=== PATIENT | female | born 1945 | race Caucasian/White ===

== ENCOUNTER 2017-04-06 17:49 | Inpatient (IN) | payer MEDICARE, BC ==
[~2017-04-06] VITALS: Ht 162.6 cm; Wt 73.9 kg
[~2017-04-06 17:49] MED LIST: ARAVA10 MG PO; COVERA-HS240 MG PO; DILAUDID INJ2 MG/ML IV; DULCOLAX10 MG/SUPP RC; FOLIC ACID1 MG PO; HYDROCHLOROTHIA25 MG PO; K-DUR20 MEQ PO; LOVENOX30 MG/0.3 SQ; METHOTREXATE2.5 MG PO; MIRALAX17 GM PO; NEURONTIN 100100 MG PO; NORCO 10/325 TA1 TA1 PO; ONDANSETRON4 MG/2 M3 IV; PREDNISONE1 MG PO; ROBAXIN-750750 MG PO; SALINE FLUSH10 ML IJ; SENOKOT-S TABLE1 TAB PO; STERAPRED 5MG 125 MG PO; TYLENOL325 MG PO; ULTRAM50 MG PO; ZANAFLEX4 MG PO; ZOFRAN4 MG PO
[2017-04-06] MEDS ORDERED: ULTRACET TABLET1 TAB PO (18:26)
[2017-04-06] MEDS ORDERED: XALATAN 0.0052.5 ML EACH EYE (18:27)
[2017-04-06] MEDS ORDERED: CALAN120 MG PO (18:30)
[2017-04-06] MEDS ORDERED: PREDNISONE5 MG PO (18:33)
--- NOTE | 2017-04-06 18:34 | NUR ---
1814 PATIENT ARRIVED TO UNIT AND ADMITTED TO ROOM 2137. PATIENT ARRIVED BY WHEELCHAIR ACCOMPAINED BY MALE VISITOR AND ADMISSIONS STAFF. ARM BAND PLACED ON PATIENT AFTER ASSISTING PATIENT TO BED. MULITPLE PILLOWS PROVIDED. CALL LIGHT WITHIN REACH. NO DISTRESS. RIGHT ELBOW WRAPPED WITH PRECIOUS BANDAGE, ELEVATED ON PILLOWS.
--- NOTE | 2017-04-06 18:45 | NUR ---
22 GAUGE IV PLACED TO LEFT FOREARM X 1 STICK. GOOD BLOOD RETURN, EASY FLUSH. TAPED, DATED AND SECURED. TOLERATED IV INSERTION WELL.
[2017-04-06 19:01] LABS: BASOPHILS 0.1 % (0-2); EOSINOPHILS 0.3 % (0-7); HEMATOCRIT 40.4 % (36.0-48.0); HEMOGLOBIN 13.1 g/dL (12-16); IMMATURE GRANULOCYTES 0.3 % (0-5); MCH 31.7 pg (26.0-34.0); MCHC 32.4 g/dL (31.0-37.0); MCV 97.8 fL (80.0-100.0); MEAN PLATELET VOLUME 9.7 fL (7.4-10.4); MONOCYTES 5.7 % (2-11); NEUTROPHILS 87.6 % (40-80); RBC 4.13 10x6/uL (4.00-5.40); RDW 19.1 % (11.5-14.5); WBC 17.3 10x3/uL (4.8-10.8)
[2017-04-06 19:07] LABS: PLATELET COUNT 234 10x3/uL (130-400)
[2017-04-06 19:22] LABS: ALBUMIN 2.9 g/dL (3.4-5.0); ANION GAP 9.7 mmol/L (8-16); BILIRUBIN - TOTAL 1.22 mg/dL (0.2-1.3); CALCIUM 8.8 mg/dL (8.5-10.1); CARBON DIOXIDE 30.5 mmol/L (21.0-32.0); CREATININE - SERUM 1.1 mg/dL (0.6-1.3); POTASSIUM - SERUM 3.2 mmol/L (3.5-5.1)
--- NOTE | 2017-04-06 19:37 | NUR ---
IV FLUIDS INFUSING ORDERED AT THIS TIME. REPORT GIVEN TO ONCOMING NURSE.
[2017-04-06 20:00] VITALS: BP 125/66
--- NOTE | 2017-04-06 20:30 | NUR ---
REST IN BED, EYE OPEN, DENIES NEEDS.
[2017-04-06 21:36] LABS: ERYTHROCYTE SEDIMENTATION RATE 80 mm/hr (0-30)
[2017-04-07 04:00] VITALS: BP 114/62
[2017-04-07 06:08] VITALS: BP 125/66; Ht 162.6 cm; Wt 73.9 kg
--- NOTE | 2017-04-07 06:23 | NUR ---
PT LYING IN BED, EYES CLOSED, RESPIRATIONS EVEN AND UNLABORED. CONTINUE TO MONITOR CLOSELY. BED LOW, CALL LIGHT IN REACH, SIDE RAILS X 2, HOB 30 DEGREES.
[2017-04-07 07:09] LABS: BASOPHILS 0.2 % (0-2); HEMOGLOBIN 11.1 g/dL (12-16); IMMATURE GRANULOCYTES 0.4 % (0-5); LYMPHOCYTES 6.7 % (15-50); MCH 31.1 pg (26.0-34.0); MCHC 31.7 g/dL (31.0-37.0); MONOCYTES 5.9 % (2-11); NEUTROPHILS 85.8 % (40-80); RBC 3.57 10x6/uL (4.00-5.40); RDW 19.2 % (11.5-14.5); WBC 13.3 10x3/uL (4.8-10.8)
[2017-04-07 07:18] LABS: PLATELET COUNT 184 10x3/uL (130-400)
[2017-04-07 07:32] LABS: ANION GAP 9.5 mmol/L (8-16); CALCIUM 7.4 mg/dL (8.5-10.1); CARBON DIOXIDE 28.2 mmol/L (21.0-32.0); CREATININE - SERUM 0.9 mg/dL (0.6-1.3)
[2017-04-07 08:00] VITALS: BP 144/76
[2017-04-07 08:14] LABS: POTASSIUM - SERUM 2.7 mmol/L (3.5-5.1)
--- NOTE | 2017-04-07 08:18 | NUR ---
REECE FROM LAB CALLED TO REPORT CRITCAL POTASSIUM LEVEL (2.7) ON PT. PAGED CHIRAG HOLLINS NP TO INFORM HER OF THIS. WILL AWAIT CALLBACK.
--- NOTE | 2017-04-07 08:21 | NUR ---
AM ROUNDING- RECEIVED REPORT FROM LOCAL DELIVERY DRIVER NURSE GUSTAVO. PT IS CURRENTLY LAYING IN BED ON LEFT SIDE WITH EYES OPEN RESTING. PT STATES SHE IS IN NO PAIN CURRENTLY BUT DOES HAVE HEADACHE. ON ROOM AIR. NO MONITOR. IV SEEN TO LEFT FOREARM WITH NS RUNNING AT 75CC. NO NEED AT CURRENT TIME. CALL LIGHT IS IN REACH. WILL CONTINUE TO MONITOR AND CONTINUE WITH PLAN OF CARE.
--- NOTE | 2017-04-07 08:23 | NUR ---
RECEIVED CALLBACK FROM CHIRAG HOLLINS NP WITH NEW ORDERS RECEIVED (ELECTROLYTE PROTOCOL). WILL DO ORDERED AND CONTINUE TO MONITOR.
[2017-04-07 12:00] VITALS: BP 151/79
--- NOTE | 2017-04-07 15:07 | NUR ---
PT IS CURRENTLY SITTING UP IN BED WITH EYES OPEN RESTING WATCHING TV. PT STATES SHE IS FINE AT THIS TIME. NO NEED AT CURRENT TIME. CALL LIGHT IS IN REACH. WILL CONTINUE TO MONITOR.
[2017-04-07 16:00] VITALS: BP 133/66
--- NOTE | 2017-04-07 16:58 | NUR ---
PT IS WEARING SCD'S.
--- NOTE | 2017-04-07 18:45 | NUR ---
PT IS CURRENTLY LAYING IN BED ON RIGHT SIDE WITH EYES OPEN RESTING. PT DENIES ANY NEED AT THIS TIME. CALL LIGHT IS IN REACH. WILL CONTINUE TO MONITOR.
[2017-04-07 19:00] VITALS: BP 108/72
--- NOTE | 2017-04-07 20:26 | NUR ---
PT AWAKE, ALERT, ORIENTED, STATING MINIMAL PAIN IN RT ELBOW. K+ NOW WNL. PT DENIES ANY NEEDS. I HAVE REPLACED PTS SCD'S, PLACED A PILLOW BETWEEN HER LEGS PER HER REQUEST, AND SHE IS NOW RESTING COMFORTABLY. CONTINUE TO MONITOR CLOSELY. BED LOW, CALL LIGHT IN REACH, SIDE RAILS X 2, HOB 30 DEGREES.
[2017-04-08] VITALS: BP 97/58
--- NOTE | 2017-04-08 03:28 | NUR ---
PT RESTING COMFORTABLY. ICE PACK GIVEN WITH 21:00 MEDS FOR COMFORT TO RT ELBOW/ARM. PT REQUESTED TO HAVE SCD'S REMOVED, STATING SHE FEELS CONFINED AND CANNOT TOLERATE THEM AT THIS TIME. DENIES ANY OTHER NEEDS. CONTINUE TO MONITOR CLOSELY. BED LOW, CALL LIGHT IN REACH, SIDE RAILS X 2, HOB 30+ DEGREES.
[2017-04-08 04:00] VITALS: BP 115/58
--- NOTE | 2017-04-08 05:17 | NUR ---
PT RESTING COMFORTABLY, DENIES ANY NEEDS. CONTINUE TO MONITOR CLOSELY.
[2017-04-08 08:00] VITALS: BP 112/47
--- NOTE | 2017-04-08 08:07 | NUR ---
0715- AM ROUNDING- RECEIVED REPORT FROM TELEGRAPH REPEATER TECHNICIAN NURSE LAVONNE. PT IS CURRENTLY SITTING UP IN BED WITH EYES OPEN RESTING. PT STATES SHE IS HAVING SOME PAIN FROM RIGHT ELBOW AREA. I INFORMED PT THAT I WILL LOOK AND SEE WHAT PT HAS FOR PAIN AND GIVE ORDERED. ON ROOM AIR. NO MONITOR. IVS EEN TO LEFT FOREARM WITH NS RUNNING AT KVO (30CC). NO NEED AT THIS CURRENT TIME. WILL CONTINUE TO MONITOR AND CONTINUE WITH PLAN OF CARE.
[2017-04-08 12:00] VITALS: BP 103/37
--- NOTE | 2017-04-08 13:22 | NUR ---
Patient Name: ANNY FLETCHER Admission Status: Elective Accout number: [id number] Admission Date: 04-06-2017 : 1945 Admission Diagnosis:PAIN IN RIGHT ELBOW Attending: BENITA Current LOS: 2 Anticipated DC Date: Planned Disposition: Home Primary Insurance: MEDICARE A & B LATE ENTRY FROM 04-07-17: Discharge Planning Comments: * Is the patient Alert and Oriented? Yes 0 * How many steps to enter\exit or inside your home? 5-6 0 * PCP DR. MEZA 0 * Pharmacy [facility] 0 * Preadmission Environment Home with Family 0 * ADLs Independent 0 * Equipment Cane Walker 0 * Other Equipment NO MEDICAL EQUIPMENT PROVIDER PREFERENCE 0 * List name and contact numbers for known caregivers / representatives who currently or will assist patient after discharge: JIE FLETCHER, SON, JOCELIN CUMMINGS, DTR, 0 * Community resources currently utilized Private Duty Care 0 * Please name any agencies selected above. TELEHEALTH NURSE EDUCATOR, PRIVATE PAY 1X PER WEEK 0 * Additional services required to return to the preadmission environment? No 0 * Can the patient safely return to the preadmission environment? Yes 0 * Has this patient been hospitalized within the prior 30 days at any hospital? No 0 CM MET WITH PT IN ROOM TO DISCUSS DISCHARGE PLANNING AND NEEDS. PT REPORTS LIVING AT HOME INDEPENDENTLY WITH ADULT SON. PT HAS CANE AND WALKER WITH NO MEDICAL EQUIPMENT PROVIDER PREFERENCE. PT HAS NO OUTSIDE SERVICES ASSISTING IN THE HOME. CM DISCUSSED AVAILABILITY OF HOME HEALTH, REHAB SERVICES AND MEDICAL EQUIPMENT. PT DENIES DISCHARGE NEEDS, REPORTS HER SON WILL PICK HER UP FOR DISCHARGE HOME. On Call: Jayro Sweet
[2017-04-08 13:58] LABS: ANION GAP 11.1 mmol/L (8-16); CALCIUM 7.9 mg/dL (8.5-10.1); CARBON DIOXIDE 23.8 mmol/L (21.0-32.0); CREATININE - SERUM 0.9 mg/dL (0.6-1.3); POTASSIUM - SERUM 3.9 mmol/L (3.5-5.1)
[2017-04-08 14:20] LABS: BASOPHILS 0.1 % (0-2); EOSINOPHILS 1.2 % (0-7); HEMATOCRIT 32.7 % (36.0-48.0); HEMOGLOBIN 10.3 g/dL (12-16); IMMATURE GRANULOCYTES 0.4 % (0-5); LYMPHOCYTES 6.2 % (15-50); MCH 31.6 pg (26.0-34.0); MCHC 31.5 g/dL (31.0-37.0); MEAN PLATELET VOLUME 9.6 fL (7.4-10.4); MONOCYTES 8.3 % (2-11); NEUTROPHILS 83.8 % (40-80); PLATELET COUNT 176 10x3/uL (130-400); RBC 3.26 10x6/uL (4.00-5.40); RDW 19.2 % (11.5-14.5); WBC 13.8 10x3/uL (4.8-10.8)
[2017-04-08 14:30] LABS: MCV 100.3 fL (80.0-100.0)
[2017-04-08 16:00] VITALS: BP 137/57
--- NOTE | 2017-04-08 18:24 | NUR ---
PT IS CURRENTLY SITTING UP IN BED EATING DINNER TRAY. PT DENIES ANY NEED AT CURRENT TIME. WILL CONTINUE TO MONITOR.
--- NOTE | 2017-04-08 18:45 | NUR ---
PT STATES HER IV CATHETER (TO LEFT WRIST) HURTS. IV SITE IS SLIGHTLY RED. ATTEMPTED TO RESITE PT X2 WITH IV CATHETER THAT WAS NOT SUCCESSFUL. ATTEMPTED TO REPOSITION IV TO LEFT WRIST AND FLUSH, PT STATES IT HURTS. IV TO LEFT WRIST REMOVED WITH CATH TIP INTACT. WILL PASS THIS ALONG IN REPORT.
[2017-04-08 19:00] VITALS: BP 152/77
[2017-04-09] VITALS: BP 109/61
--- NOTE | 2017-04-09 00:51 | NUR ---
NURSE ROUNDS 04/08/17 21:00 - PT LYING IN BED, EYES CLOSED, RESPIRATIONS EVEN AND UNLABORED. CONTINUE TO MONITOR CLOSELY.
--- NOTE | 2017-04-09 03:22 | NUR ---
PTS IV RESITED TO RT FOREARM BY REYNA PRICE, 22G X 1 STICK.
[2017-04-09 04:00] VITALS: BP 120/81
[2017-04-09 05:49] LABS: BASOPHILS 0.2 % (0-2); EOSINOPHILS 1.7 % (0-7); HEMATOCRIT 32.9 % (36.0-48.0); HEMOGLOBIN 10.5 g/dL (12-16); IMMATURE GRANULOCYTES 0.4 % (0-5); LYMPHOCYTES 9.3 % (15-50); MCH 31.3 pg (26.0-34.0); MCHC 31.9 g/dL (31.0-37.0); MCV 98.2 fL (80.0-100.0); MEAN PLATELET VOLUME 9.7 fL (7.4-10.4); NEUTROPHILS 78.4 % (40-80); PLATELET COUNT 193 10x3/uL (130-400); RBC 3.35 10x6/uL (4.00-5.40); WBC 12.1 10x3/uL (4.8-10.8)
[2017-04-09 06:10] LABS: ANION GAP 11.1 mmol/L (8-16); CALCIUM 8.3 mg/dL (8.5-10.1); CARBON DIOXIDE 24.2 mmol/L (21.0-32.0); CREATININE - SERUM 0.9 mg/dL (0.6-1.3)
[2017-04-09 06:34] LABS: POTASSIUM - SERUM 3.3 mmol/L (3.5-5.1)
--- NOTE | 2017-04-09 07:00 | NUR ---
RECIEVED REPORT FROM OFF COMING NURSE. PT LYING IN BED. RIGHT ARM RED AND SWOLLEN. THERE IS AN OLD MARKER LINE CIRCLED AROUND REDNESS. THE ERYTHEMA HAS NOT PASSED THE LINE. IT HAS DECREASED FROM THE LINE IN SOME SPOTS. LEFT FA HAS A IV WITH NS AT 30ML/H. DENIES PAIN AT THIS TIME. BREATHING NORMAL AND UNLABORD. STEFANO LIGHT IN REACH. WILL CONT POC
[2017-04-09 08:00] VITALS: BP 104/60
[2017-04-09 16:00] VITALS: BP 126/57
--- NOTE | 2017-04-09 18:00 | NUR ---
FAMILY AT BED SIDE.
--- NOTE | 2017-04-09 18:45 | NUR ---
REPORT GIVEN TO ON COMING NURSE. BREATHING NORMAL AND UNLABORED. DENIES PAIN. 0 S/SX OF DISTRESS/DISCOMFORT NOTED. CALL LIGHT IN REACH. WILL CONT POC.
--- NOTE | 2017-04-09 19:26 | NUR ---
Received patient awake and alert sitting up in bed on her computer. Oriented x 4. PIV in lower left forearm infusing NS @30ml/hr with no signs of infection or infiltration at PIV insertion site. Bruising noted to both arms. Right arm red and imflamed especially at elbow area. Patient reports that the swelling is receding, right hand is no longer swollen and swelling is receding down from upper arm. Patient states the right elbow is tender and sore, and is requesting an ice pack to same.
[2017-04-09 20:00] VITALS: BP 122/56
--- NOTE | 2017-04-09 20:34 | NUR ---
Ice pack given to place on right elbow, patient reports this is helping relieve symptoms. Also given Ultracet tab PRN at this time for right arm pain. Will monitor for effectiveness.
--- NOTE | 2017-04-09 21:35 | NUR ---
Patient's son at nursing station requesting ice pack be changed with fresh ice, Tech did same and was given to patient to place on right elbow.
--- NOTE | 2017-04-10 02:10 | NUR ---
Patient in bed sleeping, eyes closed, respirations easy and regular. No signs of distress, IV infusing.
[2017-04-10 04:00] VITALS: BP 129/66
--- NOTE | 2017-04-10 05:10 | NUR ---
Continues to sleep, no signs of distress.
[2017-04-10 06:16] LABS: BASOPHILS 0.4 % (0-2); EOSINOPHILS 3.7 % (0-7); HEMOGLOBIN 10.6 g/dL (12-16); IMMATURE GRANULOCYTES 0.6 % (0-5); LYMPHOCYTES 15.8 % (15-50); MCH 31.1 pg (26.0-34.0); MCHC 32.1 g/dL (31.0-37.0); MCV 96.8 fL (80.0-100.0); MEAN PLATELET VOLUME 9.6 fL (7.4-10.4); MONOCYTES 19.6 % (2-11); NEUTROPHILS 59.9 % (40-80); PLATELET COUNT 206 10x3/uL (130-400); RBC 3.41 10x6/uL (4.00-5.40); WBC 6.7 10x3/uL (4.8-10.8)
[2017-04-10 06:30] LABS: CALC OSMOLALITY 273 mosm/kg (275-300); CALCIUM 8.4 mg/dL (8.5-10.1); CARBON DIOXIDE 26.9 mmol/L (21.0-32.0); CHLORIDE - SERUM 102 mmol/L (98-107); CREATININE - SERUM 0.7 mg/dL (0.6-1.3); GLUCOSE 111 mg/dL (74-106); POTASSIUM - SERUM 3.3 mmol/L (3.5-5.1); SODIUM 137 mmol/L (136-145); UREA NITROGEN 10 mg/dL (7-18); eGFR NON AFRICAN AMERICAN 88 mL/min (90-120)
--- NOTE | 2017-04-10 07:30 | NUR ---
AM ROUNDS COMPLETED. PT A&O RESTING QUIETLY IN BED. SHIFT ASSESSMENT COMPLETED. RE-ELEVATED PTS R.ARM ON A PILLOW TO HELP REDUCE SWELLING. PT VOICED THANKS AND IS WAITING ON BREAKFAST. NO FURTHER NEEDS AT THIS TIME. CL IN REACH, BED IN LOWEST, SIDE RAILS X2. WILL CPOC.
[2017-04-10 08:00] VITALS: BP 126/66
--- NOTE | 2017-04-10 09:15 | NUR ---
MORNING MEDICATIONS SWALLOWED AND PT DENIED ANY DIFFICULTIES WITH SWALLOWING. PTS POTASSIUM IS 3.3 AND SHES ON ELECTROLYTE PROTOCOL. 40MEQ OF LIQUID POTASSIUM GIVEN PER PROTOCOL AND DILUTED IN ORANGE JUICE. PT HAS PIV TO L.FA WITH NS @30ML/HR. R.ARM IS SWOLLEN AND RED AND WARM TO THE TOUCH. ELEVATED WITH PILLOWS AND PROVIDED PT WITH PRN PAIN MEDICATION ALONG WITH ICE PACK TO HELP WITH PAIN. PT VOICED THANKS AND DENIES ANY FURTHER NEEDS AT THIS TIME. CL IN REACH, BED IN LOWEST, SIDE RAILS X2. WILL CPOC.
[2017-04-10 12:00] VITALS: BP 115/71
[2017-04-10 16:00] VITALS: BP 142/77
--- NOTE | 2017-04-10 16:01 | NUR ---
PTS POTASSIUM LEVEL NOW 3.8 NO FURTHER TX NEEDED AT THIS TIME PER ELECTROLYTE PROTOCOL. WILL CPOC.
[2017-04-10 19:00] VITALS: BP 112/66
--- NOTE | 2017-04-10 19:30 | NUR ---
PT LAYING ON RIGHT SIDE WATCHING A MOVIE. C/O PAIN IN RIGHT ARM. DENIES ANY NEEDS. NO S/S OF DISTRESS. BED LOW AND CALL LIGHT WITHIN REACH. WILL CPOC
--- NOTE | 2017-04-10 19:48 | NUR ---
PT PIV INFILTRATED D/C WITH CATHETER TIP FULLY INTACT. PT IS REFUSING TO HAVE A NEW ONE INSERTED AND STATES SHE IS HOPING TO BE DISCHARGED TOMORROW AND CAN HAVE ORAL ANBX. WILL PASS ON.
--- NOTE | 2017-04-10 21:54 | NUR ---
PT WATCHING TV. NIGHT TIME MEDS GIVEN, PT DENIES ANY NEEDS. NO S/S OF DISTRESS. PT IS HURTING GAVE HER ORDERED TRAMADOL. WILL GIVE HER NORCO AT 0000 WHEN IT IS TIME. PT DENIES ANY OTHER NEEDS. WILL CPOC
--- NOTE | 2017-04-11 03:11 | NUR ---
PT RESTING IN BED. C/O PAIN IN HER RIGHT ARM AND SHOULDER. HYDDROCODONE GIVEN. FOR PAIN 01/30. PT HAS ICE PACKS. PT DENIES ANY OTHER NEEDS. NO S/S OF DISTRESS. WILL CPOC
[2017-04-11 04:00] VITALS: BP 104/54
[2017-04-11 07:15] LABS: BASOPHILS 0.5 % (0-2); EOSINOPHILS 3.6 % (0-7); HEMATOCRIT 34.1 % (36.0-48.0); HEMOGLOBIN 10.9 g/dL (12-16); IMMATURE GRANULOCYTES 1.3 % (0-5); LYMPHOCYTES 17.6 % (15-50); MCV 96.9 fL (80.0-100.0); MEAN PLATELET VOLUME 9.3 fL (7.4-10.4); MONOCYTES 24.9 % (2-11); NEUTROPHILS 52.1 % (40-80); PLATELET COUNT 223 10x3/uL (130-400); RBC 3.52 10x6/uL (4.00-5.40); RDW 19.1 % (11.5-14.5); WBC 5.5 10x3/uL (4.8-10.8)
[2017-04-11 07:26] LABS: CALC OSMOLALITY 266 mosm/kg (275-300); CALCIUM 8.6 mg/dL (8.5-10.1); CARBON DIOXIDE 28.4 mmol/L (21.0-32.0); CHLORIDE - SERUM 101 mmol/L (98-107); CREATININE - SERUM 0.8 mg/dL (0.6-1.3); GLUCOSE 92 mg/dL (74-106); POTASSIUM - SERUM 3.5 mmol/L (3.5-5.1); SODIUM 134 mmol/L (136-145); UREA NITROGEN 10 mg/dL (7-18); eGFR NON AFRICAN AMERICAN 75 mL/min (90-120)
[2017-04-11 08:00] VITALS: BP 113/69
[2017-04-11 16:00] VITALS: BP 120/63
--- NOTE | 2017-04-11 16:05 | NUR ---
ALERT AND ORIENTED X4. RESTING IN BED. ANXIOUS TO GO HOME. NO IV ACCESS. REFUSE IV TO BE SITED. DENIES SOB. PAIN MANAGEMENT CONTINUED ORDERED. DENIES ANY NEEDS. BED LOCKED AND LOW. CALL LIGHT IN REACH. TWO SIDERAILS UP.
--- NOTE | 2017-04-11 19:52 | NUR ---
PT RESTING IN BED. RIGHT ARM HURTS HER 12/30. PT CAN NOT USE IT TO LIFT DRINK. PT DENIES ANY NEEDS. NO S/S OF DISTRESS. ULTRAM WAS GIVEN AT ABOUT 1730 WILL GIVE HER OTHER ULTRAM AT A LATER TIME. BED LOW AND CALL LIGHT WITHIN REACH. WILL CPOC
[2017-04-11 20:00] VITALS: BP 104/50
--- NOTE | 2017-04-12 00:04 | NUR ---
PT UP TO BSC WITH X1 ASSIST. PT DENIES ANY NEEDS. ZOFRAN GIVEN FOR NAUSEA APPROX 30 MINS AGO HAS HELPED. ICE PACKS PROVIDED FOR RIGHT ARM. NO S/S OF DISTRESS. BED LOW AND CALL LIGHT WITHIN REACH. WILL CPOC
--- NOTE | 2017-04-12 01:00 | NUR ---
ASSIST PT TO BEDSIDE COMMODE. PT DID NOT NEED ASSIST YESTURDAY. WHEN ASKING PT SHE STATED THAT SHE HAS URINATION URGENCY THAT SHE DIDNT HAVE YESTURDAY. SHE ALSO STATES THAT SHE FEELS WEAKER THAN YESTURDAY. SHE STATED "NOT REHAB WEAK BUT I AM WEAKER AND FEEL WORSE THAN I DID YESTURDAY. I DONT FEEL LIKE I AM GETTING BETTER" TOLD PT I WOULD PUT A NOTE IN AND PASS THIS NEW CONCERN IN REPORT. AND ADVISED HER TO ALSO SPEAK WITH HER DOCTOR ABOUT IT WHEN HE MAKES HIS ROUNDS. HELPED PT REPOSITION. ICE PACKS ON RIGHT ARM. PT LAYING ON LEFT SIDE. PILLOW BETWEEN LEGS AND A PILLOW BEHIND HER BACK. PT DENIES ANY NEEDS. NO S/S OF DISTRESS. WILL CPOC
[2017-04-12 04:00] VITALS: BP 118/64
[2017-04-12 05:21] LABS: BASOPHILS 0.4 % (0-2); EOSINOPHILS 2.3 % (0-7); HEMATOCRIT 34.7 % (36.0-48.0); HEMOGLOBIN 11.1 g/dL (12-16); IMMATURE GRANULOCYTES 1.5 % (0-5); LYMPHOCYTES 15.3 % (15-50); MCH 31.3 pg (26.0-34.0); MCV 97.7 fL (80.0-100.0); MEAN PLATELET VOLUME 9.1 fL (7.4-10.4); MONOCYTES 23.3 % (2-11); NEUTROPHILS 57.2 % (40-80); PLATELET COUNT 242 10x3/uL (130-400); RBC 3.55 10x6/uL (4.00-5.40); WBC 6.8 10x3/uL (4.8-10.8)
[2017-04-12 05:36] LABS: ANION GAP 11.4 mmol/L (8-16); CALCIUM 8.5 mg/dL (8.5-10.1); CARBON DIOXIDE 29.2 mmol/L (21.0-32.0); CREATININE - SERUM 0.9 mg/dL (0.6-1.3); POTASSIUM - SERUM 3.6 mmol/L (3.5-5.1)
--- NOTE | 2017-04-12 06:50 | NUR ---
PT RESTING IN BED. UP TO BSC FOR VOID. STAND BY ASSIST. PT DENIES ANY NEEDS. TRAMADOL GIVEN FOR PAIN. NO S/S OF DISTRESS. WILL CPOC
[2017-04-12 08:00] VITALS: BP 102/58
[2017-04-12] MEDS ORDERED: VIBRAMYCIN 100100 MG PO (14:15)
[2017-04-12] MEDS ORDERED: FLORAJEN3 CAPS460 MG PO (14:15)
--- NOTE | 2017-04-12 15:42 | NUR ---
Patient Name: ANNY FLETCHER Encounter No: [id number] : 1945 Primary Insurance: MEDICARE A & B Anticipated DC Date: 04-12-2017 Planned Disposition: Home DCP follow-up note: CM MET WITH PT IN ROOM TO DISCUSS DISCHARGE NEEDS AND PLANNING. CM DISCUSSED AVAILABILITY OF HOME HEALTH, REHAB SERVICES AND MEDICAL EQUIPMENT. PT DENIES DISCHARGE NEEDS. PT'S SON TO TRANSPORT HOME AT DISCHARGE. IMPORTANT MESSAGE FROM MEDICARE PROVIDED AND EXPLAINED. Jayro Sweet, CASE MANAGEMENT
--- NOTE | 2017-04-12 16:54 | NUR ---
ALERT AND ORIENTED X4. RESTING IN BED. NO IV TO DC. DISCHARGE INSTRUCTIONS GIVEN VERBALLY AND WRITTEN. WRITTEN PRESCRIPTION PROVIDED. DISCHARGE PAPERS SIGNED ON CHART. WAITING FOR RIDE. CONTINUE PLAN OF CARE AND SAFETY PRECAUTIONS.
--- NOTE | 2017-04-12 18:54 | NUR ---
FAMILY ARRIVE FOR DISCHARGE. ESCORT TO RIDE VIA WHEELCHAIR. REMAINS FREE FROM INJURY.
== END 2017-04-12 18:55 | disposition home or self-care (01) | DRG 549 ==
LOC: D.M2 17:49
PROVIDERS: Orthopaedic Surgery; ADMIT Emergency Medicine
DX: M00.9 Pyogenic arthritis, unspecified (principal); L03.113 Cellulitis of right upper limb; M71.121 Other infective bursitis, right elbow; D64.9 Anemia, unspecified; I10 Essential (primary) hypertension; M06.9 Rheumatoid arthritis, unspecified; E78.5 Hyperlipidemia, unspecified; M54.5 Low back pain

== ENCOUNTER → 2017-04-22 14:17 | Outpatient (CLI) | payer MEDICARE, BC ==
[2017-04-07 06:08] VITALS: BMI 29.0
[~2017-04-22 14:17] MED LIST changes: +CALAN120 MG PO; +FLORAJEN3 CAPS460 MG PO; +PREDNISONE5 MG PO; +ULTRACET TABLET1 TAB PO; +VIBRAMYCIN 100100 MG PO; +XALATAN 0.0052.5 ML EACH EYE
== END | disposition home or self-care (01) ==
LOC: D.LABREF 14:17
DX: M71.121 Other infective bursitis, right elbow (principal)

== ENCOUNTER → 2018-07-12 20:08 | Outpatient (CLI) | payer MEDICARE, BC ==
[2017-04-07 06:08] VITALS: BMI 29.0
== END | disposition home or self-care (01) ==
LOC: D.MAMMO 13:30
DX: Z12.31 Encounter for screening mammogram for malignant neoplasm of breast (principal)

== ENCOUNTER 2019-10-18 11:37 | Day surgery (SDC) | payer MEDICARE, BC ==
[~2019-10-18] VITALS: Ht 162.6 cm; Wt 69.9 kg
[~2019-10-18 11:37] MED LIST changes: +OMEPRAZOLE20 M1 PO
[2019-10-18 12:21] LABS: HEMATOCRIT 39.7 % (36.0-48.0); HEMOGLOBIN 12.2 g/dL (12-16); MCH 32.1 pg (26.0-34.0); MCHC 30.7 g/dL (31.0-37.0); MCV 104.5 fL (80.0-100.0); MEAN PLATELET VOLUME 8.8 fL (7.4-10.4); RBC 3.8 10x6/uL (4.00-5.40); RDW 19.6 % (11.5-14.5); WBC 5.9 10x3/uL (4.8-10.8)
[2019-10-18 12:27] LABS: ANION GAP 10.7 mmol/L (8-16); CALCIUM 8.9 mg/dL (8.5-10.1); CARBON DIOXIDE 30.6 mmol/L (21.0-32.0); CREATININE - SERUM 0.9 mg/dL (0.6-1.3); POTASSIUM - SERUM 3.3 mmol/L (3.5-5.1)
[2019-10-18 13:08] VITALS: Ht 162.6 cm; Wt 69.9 kg
[2019-10-18] MEDS ORDERED: DURICEF500 MG PO (16:26)
[2019-10-18] MEDS ORDERED: HYDROCODON-ACE1 EA10 PO (16:26)
--- NOTE | 2019-10-18 17:49 | NUR ---
1515 INSTRUCTIONS GIVEN TO PT AND FAMILY
--- NOTE | 2019-10-18 18:06 | NUR ---
1805 IV REMOVED AND PRESSURE HELD. INSTRUCTIONS GIVEN
--- NOTE | 2019-10-18 19:04 | NUR ---
1845 PT ASSITED UP TO SIDE OF BED. ABLE TO WALK A SHORT DISTANCE WHILE HOLDING ON TO NURSE. BECAME WEAK AND ASSITED ON TOILET. SMALL AMT OF DRAINAGE TO PRECIOUS DRESING BUT NOT ALL THE WAY TO OUTSIDE OF DRESSING INDEX FINGER AND MIDDLE FINGER SWOLLEN. SLING MAINTAINED AND PT GIVEN A PILLOW ON THE WAY HOME. ENCOURAGED PT TO KEEP ABOVE HEART. DENIES PAIN. SWELLING IN BILATERAL FEET. 4+ EDEMA. PT WALKS WITH RIGHT FOOT AT A 30 DEGREE ANGLE. PT HAS A WALKER BUT ENCOURAGED PT TO SIT IN THE SEATED PART TO GET AROUND. 1900 ASSISTED BACK IN W/C AND COVERED WITH WARM BLANKETS. ASSISTED IN CAR.
--- NOTE | 2019-10-19 07:59 | OP ---
PATIENT NAME: ANNY FLETCHER MEDICAL RECORD: [id number] :[birth year] LOCATION:[facility] ADMISSION DATE: SURGEON: AUSTIN BECKHAM DO DATE OF OPERATION: 10/18/2019 PROCEDURE PERFORMED: Left ring finger proximal phalanx open reduction internal fixation. PREOPERATIVE DIAGNOSIS: Displaced proximal phalanx fracture, left ring finger. POSTOPERATIVE DIAGNOSIS: Displaced proximal phalanx fracture, left ring finger. INDICATIONS: Ms. Fletcher is a 73-year-old female who is right hand dominant who fell a couple of days ago and sustained a fracture to her proximal phalanx of her left hand, left ring finger. X-rays were taken, she was sent to my clinic to have it fixed. It was severely displaced and malrotated. I informed her of the risks including infection, bleeding, malunion, nonunion, adhesions of the extensor tendon and continued pain, malrotation and crossover of the fingers. She was okay with that as well as damage to the digital nerves and bleeding and signed the consent. SURGEON: Austin Beckham DO DESCRIPTION OF PROCEDURE: The patient was taken to the operative suite after given a block by anesthesia in preoperative area and taken to the OR, laid in the supine position, given general anesthetic and LMA was placed, given 2 grams of Ancef preoperatively. The left upper extremity was then prepped and draped in sterile fashion after LMA had been placed. She was sedated and timeout was performed, everyone was in agreement with the correct side, site, patient and procedure. Once she was prepped and draped and a timeout performed, I began the incision over the proximal phalanx of the left ring finger. Dissection was made down to the extensor tendon. I divided this in half and exposed the fracture site. The fracture was then reduced. A small plate was put on for [employer] and affixed the plate proximally first with 2 screws and then distally with 2 screws, had a very nice hold and reduction and confirmed on AP and lateral and then closed the extensor tendon with 2 simple interrupted sutures of 4-0 Ethibond closing in nicely and then tourniquet was let down and the skin was closed with a 4-0 nylon in a simple fashion. She was dressed with Adaptic, 4 x 4s, and a splint was placed on the finger to the PIP so she could still range her finger. The rotation was lined up well. There was no malrotation noted and no crossover of the ring finger. She was then awakened and taken to recovery in stable condition. BLOOD LOSS: Minimal. COMPLICATIONS: None. TRANSINT:[id number] Voice Confirmation ID: [id number] DOCUMENT ID: [id number] OPERATIVE REPORT [id number] ANNY FLETCHER MICHAEL D, DO at 0759 CC: [id number] DICTATION DATE: 10/18/19 1624 STOCK SPECULATOR: 10/19/19 0009 [facility] 10/18/19 [id number] [place] [address]
== END 2019-10-18 19:00 | disposition home or self-care (01) ==
LOC: D.OPS 11:37 → D.PAN 14:00 → D.OPS 14:15
PROVIDERS: Anesthesiology; ATTEND Orthopaedic Surgery
DX: S62.615A Displaced fracture of proximal phalanx of left ring finger, initial encounter for closed fracture (principal); W19.XXXA Unspecified fall, initial encounter; Y93.9 Activity, unspecified; Y92.9 Unspecified place or not applicable

== ENCOUNTER 2020-01-09 05:10 | Day surgery (SDC) | payer MEDICARE, BC ==
[~2020-01-09] VITALS: Ht 162.6 cm; Wt 69.9 kg
[~2020-01-09 05:10] MED LIST changes: +ASCORBIC ACID500 MG PO; +DURICEF500 MG PO; +HYDROCODON-ACE1 EA10 PO; +THEREMS-M1 TAB PO; +VITAMIN D1000 UNI1 PO
[2020-01-09 05:39] LABS: MCH 31.5 pg (26.0-34.0); MCV 101.7 fL (80.0-100.0); MEAN PLATELET VOLUME 9.8 fL (7.4-10.4); RBC 4.13 10x6/uL (4.00-5.40); RDW 18.4 % (11.5-14.5); WBC 5.1 10x3/uL (4.8-10.8)
[2020-01-09 06:17] VITALS: BP 159/63; Ht 162.6 cm; Wt 69.9 kg
[2020-01-09] MEDS ORDERED: HYDROCODON-ACE1 EAC7 PO (08:46)
[2020-01-09] MEDS ORDERED: DURICEF500 MG PO (08:47)
--- NOTE | 2020-01-09 12:38 | OP ---
PATIENT NAME: ANNY FLETCHER MEDICAL RECORD: [id number] :[birth year] LOCATION[facility] ADMISSION DATE: SURGEON: CURRY BECKHAM DO DATE OF OPERATION: 01/09/2020 PROCEDURE PERFORMED: Left ring finger proximal phalanx fracture, nonunion, with extensor tendon rupture. PREOPERATIVE DIAGNOSIS: Ring finger extensor tendon rupture. 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 INDICATIONS: Ms. Fletcher is a 74-year-old female, who underwent ORIF of the left proximal phalanx several months ago. She said gradually her fingertip drooping and drooping at the PIP joint where she could not extend it and did not have any extension at that joint. She does have rheumatoid arthritis, which could certainly plate into this and she was on prednisone as well, which can factoring of the healing component of the fracture. I told her likely the plate rubbed the tendon and it severed it or split it at least, due to the approach I had to split the tendon. I told I would go in there and fix the tendon and take the plate out. She was aware of the risks including infection, bleeding, damage to nerves and vessels, continued drooping of the finger, continued pain and continued issues with that finger and she signed the consent. SURGEON: Curry Beckham DO DESCRIPTION OF PROCEDURE: The patient was taken to the operative suite, laid in the supine position, given general anesthetic, given 1 gram of Ancef and 80 mg of gentamicin. She was sedated and LMA was placed. The left upper extremity was then prepped and draped in sterile fashion. Timeout was performed. Everyone was in agreeance with the correct side, site, patient and procedure. We exsanguinated the left upper extremity with an Esmarch and tourniquet was inflated to 250 mmHg, it was up for 69 minutes. We then made an incision over the proximal phalanx of the left ring finger, made careful dissection down to the extensor tendon, it was indeed split in the middle and had subsided on either side, radial and ulnar side of the proximal phalanx. I then exposed the plate and the plate had broken, indicating she likely had a nonunion of the fracture site and this indeed was the case at the fracture site. She had a severely comminuted fracture of the proximal phalanx extending the whole length of it. The nonunion site was more at the proximal base of it. I then removed the plate and repaired the extensor tendon to the best we could in order to keep her finger straight. The tendon had great excursion. I then noted the nonunion site at the base and put two crossing K-wires in, first attempting to do it retrograde and then ended up doing it antegrade through the skin and cut the wire, was bent, and then the skin was then closed by Brock Landaverde with 4-0 Monocryl in a horizontal mattress fashion. She was then wrapped with a soft dressing, awakened and taken to recovery in stable condition. I did do a finger block and digital block at the end of the case with 0.25% Marcaine with epinephrine, 2.5 mL in each side. She was then dressed with Adaptic and 4 x 4s and a Kerlix and Johnny, awakened and taken to recovery in stable condition. BLOOD LOSS: Minimal. OPERATIVE REPORT [id number] ANNY FLETCHER COMPLICATIONS: None. TRANSINT:[id number] Voice Confirmation ID: [id number] DOCUMENT ID: [id number] CURRY BECKHAM DO at 1238 CC: [id number] DICTATION DATE: 01/09/20 0852 ASSEMBLY RIVETER: 01/09/20 1213 [facility] [address] [place] [address]
--- NOTE | 2020-01-09 12:57 | NUR ---
1150 ASSISTED WITH DRESSING. AWAKE & ALERT. GIVEN DISCHARGE INFORMATION INCLUDING: RX'S 2: NORCO 5/325MG & DURICEF 500MG, MED REC, RTC APPT., & [facility] D/C INSTRUCTIONS. VERIFIED WITH Megan SANDHU APN/DESHAWN @ CLINIC PT TO KEEP DRESSING CDI UNTIL POST OP VISIT. TO PRIVATE CAR PER WHEELCHAIR BY THIS NURSE. HOME WITH GRANDSON. Guillermo DURAN R.N.
== END 2020-01-09 11:50 | disposition home or self-care (01) ==
LOC: D.OPS 05:10 → D.PAN 07:00 → D.OPS 11:50 → D.PAN 16:30
PROVIDERS: Anesthesiology; ATTEND Orthopaedic Surgery
DX: S62.615A Displaced fracture of proximal phalanx of left ring finger, initial encounter for closed fracture (principal); S66.313A Strain of extensor muscle, fascia and tendon of left middle finger at wrist and hand level, initial encounter; X58.XXXA Exposure to other specified factors, initial encounter